=== PATIENT | female | born 1965 | race Caucasian/White ===

== ENCOUNTER → 2024-02-09 | Outpatient (CLI) | payer OTHER | LOC: MC.RAD 06:58 | DX: Z12.31 Encounter for screening mammogram for malignant neoplasm of breast (principal) ==

== ENCOUNTER → 2024-03-24 | Outpatient (CLI) | payer SELFPAY | LOC: WSPT 16:52 | DX: M25.551 Pain in right hip (principal); R29.898 Other symptoms and signs involving the musculoskeletal system ==